=== PATIENT | male | born 1990 | race African-American/Black ===

== ENCOUNTER 2019-09-28 15:45 | Emergency (ER) | payer OTHER ==
[~2019-09-28] VITALS: Ht 180.3 cm; Wt 103.6 kg
[2019-09-28] MEDS ORDERED: NS 1,000 ML IV ONE (16:00)
[2019-09-28 16:35] LABS: BASO % 0.5 % (0.0-1.0); EOS # 0.1 10^3/uL (0.0-0.5); EOS % 1.5 % (0.0-3.0); HEMOGLOBIN 14.9 g/dl (13.5-17.5); LYMPH # 2.1 10^3/uL (1.5-5.0); MEAN CORPUSCULAR HEMOGLOBIN 28.7 pg (27.0-33.0); MEAN CORPUSCULAR HGB CONC 33.1 g/dl (32.0-36.5); MEAN CORPUSCULAR VOLUME 86.5 fl (80.0-96.0); MONO # 0.8 10^3/uL (0.0-0.8); NEUTROPHILS % 61.6 % (36.0-66.0); PLATELET COUNT, AUTOMATED 315 10^3/uL (150-450); WHITE BLOOD COUNT 8.1 10^3/uL (4.0-10.0)
[2019-09-28 17:04] LABS: ALBUMIN 4.2 GM/DL (3.2-5.2); ALT/SGPT 42 U/L (12-78); BILIRUBIN,DIRECT < 0.1 MG/DL (0.0-0.2); BILIRUBIN,TOTAL 0.3 MG/DL (0.2-1.0); BLOOD UREA NITROGEN 15 MG/DL (7-18); C REACTIVE PROTEIN QUANTITATIV < 0.30 MG/DL (0.00-0.30); CALCIUM LEVEL 9.6 MG/DL (8.5-10.1); CARBON DIOXIDE LEVEL 30 MEQ/L (21-32); CHLORIDE LEVEL 105 MEQ/L (98-107); CREATININE FOR GFR 1.13 MG/DL (0.70-1.30); GLOMERULAR FILTRATION RATE > 60.0 (>60); GLUCOSE, FASTING 83 MG/DL (70-100); LIPASE 117 U/L (73-393); MAGNESIUM LEVEL 2.5 MG/DL (1.8-2.4); NT-PRO BNP 11 PG/ML (<125); POTASSIUM SERUM 3.9 MEQ/L (3.5-5.1); SODIUM LEVEL 137 MEQ/L (136-145); TOTAL PROTEIN 8.3 GM/DL (6.4-8.2)
[2019-09-28 17:26] VITALS: BP 142/83
[2019-09-28 17:29] LABS: ERYTHROCYTE SEDIMENTATION RATE 11 mm/hr (0-15)
--- NOTE | 2019-09-28 17:33 | REP ---
CHEST, SINGLE VIEW: There is no evidence of acute infiltrate. No pleural effusion is seen. The heart is normal in size. The mediastinal silhouette is unremarkable. The visualized osseous structures are intact. IMPRESSION: No acute pulmonary disease. Electronically Signed by Cortez Edmond MD 09/29/2019 10:35 A
--- NOTE | 2019-09-29 08:39 | ECGEPIP ---
[facility] - ED Test Date: 2019-09-28 Pat Name: UNA KENNEDY Department: Room: - Gender: Male Vascular Ultrasound Technician: agata : 1990 Requested By: MASTER BARCENAS Order Number: [id number] Reading MD: Jet Hilliard Measurements Intervals [place] Rate: 104 P: 57 IN: 144 QRS: 64 QRSD: 81 T: 36 QT: 333 QTc: 440 Interpretive Statements SINUS TACHYCARDIA NSTTW ABNORMALITIES NO PRIORS FOR COMPARISON Electronically Signed on 09-29-2019 8:39:23 EDT by Jet Hilliard
== END 2019-09-28 17:35 | disposition home or self-care (01) ==
LOC: M ED 15:45
DX: R00.0 Tachycardia, unspecified (principal); K21.9 Gastro-esophageal reflux disease without esophagitis